=== PATIENT | male | born 1975 ===

== ENCOUNTER 2018-09-28 08:11 | Emergency (ER) | payer OTHER ==
[~2018-09-28] VITALS: Ht 180.3 cm; Wt 126.1 kg
== END 2018-09-28 13:02 | disposition home or self-care (01) ==
LOC: ER 08:11
DX: N20.0 Calculus of kidney (principal); R10.31 Right lower quadrant pain

== ENCOUNTER 2023-03-14 14:39 | Outpatient (CLI) | payer OTHER | END 2023-03-14 14:59 | disposition home or self-care (01) | LOC: RAD 14:39 | DX: J18.9 Pneumonia, unspecified organism (principal); R06.00 Dyspnea, unspecified ==

== ENCOUNTER 2023-03-23 11:04 | Outpatient (CLI) | payer OTHER | END 2023-03-23 14:26 | disposition home or self-care (01) | LOC: SONOGRAMA 11:04 | DX: D17.5 Benign lipomatous neoplasm of intra-abdominal organs (principal) ==

== ENCOUNTER 2025-02-05 07:38 | Outpatient (CLI) | payer OTHER | END 2025-02-05 07:42 | disposition home or self-care (01) | LOC: MRI 07:38 | PROVIDERS: ATTEND Radiology Diagnostic Radiology | DX: M54.50 Low back pain, unspecified (principal); R20.2 Paresthesia of skin | CPT/HCPCS: 72148 ==